=== PATIENT | male | born 1980 ===

== ENCOUNTER 2017-07-12 10:51 | Emergency (ER) | payer SELFPAY ==
[~2017-07-12] VITALS: Ht 180.3 cm; Wt 78.2 kg
[2017-07-12 11:32] VITALS: BP 134/81
[2017-07-12] MEDS ORDERED: NAPROXEN 250 MG TABLET PO ONE (12:15)
== END 2017-07-12 12:34 | disposition home or self-care (01) ==
LOC: EMS 10:54
DX: S46.912A Strain of unspecified muscle, fascia and tendon at shoulder and upper arm level, left arm, initial encounter (principal); X58.XXXA Exposure to other specified factors, initial encounter; Y93.67 Activity, basketball; Y92.89 Other specified places as the place of occurrence of the external cause; Y99.8 Other external cause status
CPT/HCPCS: 99282